=== PATIENT | female | born 1950 | race Caucasian/White ===

== ENCOUNTER 2022-07-15 10:26 | Emergency (ER) | payer MEDICARE, OTHER, SELFPAY ==
[2022-07-15 10:38] VITALS: BP 141/84; PULSE 99; RESP 18; TEMP 36.1; O2SAT 99; BMI 39.9
--- NOTE | 2022-07-15 11:05 | ED_ITS ---
HPI - General Adult General Time Seen by Provider: 11:06 Date Seen: 07/15/22 Chief complaint: Back Injury/Pain Stated complaint: severe lower back pain Time Seen by Provider: 07/15/22 10:27 Source: patient Mode of arrival: ambulatory Limitations: no limitations History of Present Illness HPI narrative: Patient is a 72-year-old female who presents with left low back pain, without radicular symptoms, without bowel or bladder symptoms. She had onset she had a little bit took some ibuprofen got better today woke up and was very stiff and sore, pain in her posterior superior iliac spine area on the left. Does not really radiate down her leg but she does have some pain in her leg. Patient denies recent illness denies history of back problems denies bowel or bladder symptoms as mention. She is generally healthy, she takes simvastatin. No fevers chills, night sweats, bowel or bladder symptoms as mentioned Related Data Home Medications Medication Instructions Recorded Confirmed simvastatin 20 mg tablet 20 mg PO HS 07/15/22 07/15/22 Previous Rx's Medication Instructions Recorded prednisone 20 mg tablet 20 mg PO BID 5 days #10 tabs 07/15/22 tramadol 50 mg tablet 75 mg PO Q6H PRN pain #14 tabs 07/15/22 Allergies Allergy/AdvReac Type Severity Reaction Status Date / Time nitrofurantoin Allergy Mild Nausea Verified 07/15/22 11:05 [From Macrobid] Review of Systems Status of ROS: Reports: 6 or more systems reviewed and unremarkable except as noted in History and below PFSH PFSH Social History Smoking Status: Never smoker How often do you have a drink containing alcohol: 2-4 times a month AUDIT-C Alcohol total score: 2 Non-prescribed substance use: denies use Exam Narrative: Exam Narrative: Objective: The patient has a level elevated BMI Vital signs are unremarkable She has some tenderness in her left low back at her belt line at the SI area and posterior superiorly superior iliac spine area negative straight-leg late raise on the left Normal sensation strength in lower extremities Const: Vital Signs, click to edit/add: Vital Signs - 24 hr 07/15/22 10:38 Temperature 96.9 F L Pulse Rate [Right Pulse Oximeter] 99 Respiratory Rate 18 Blood Pressure [Le ft Upper Arm] 141/84 H Pulse Oximetry 99 Oxygen Delivery Me thod Room Air Course Vital Signs Vital signs: Initial Vital Signs Temperature 96.9 F L 07/15/22 10:38 Temperature Source Temporal Artery Scan 07/15/22 10:38 Pulse Rate 99 07/15/22 10:38 Respiratory Rate 18 07/15/22 10:38 Blood Pressure 141/84 H 07/15/22 10:38 Blood Pressure Mean 103 07/15/22 10:38 Blood Pressure Position Standing 07/15/22 10:38 Pulse Oximetry 99 07/15/22 10:38 Oxygen Delivery Method 07/15/22 10:38 Vital Signs Temperature 96.9 F L 07/15/22 10:38 Pulse Rate 99 07/15/22 10:38 Respiratory Rate 18 07/15/22 10:38 Blood Pressure 141/84 H 07/15/22 10:38 Pulse Oximetry 99 07/15/22 10:38 Oxygen Delivery Method 07/15/22 10:38 Temperature 96.9 F L 07/15/22 10:38 Pulse Rate 99 07/15/22 10:38 Respiratory Rate 18 07/15/22 10:38 Blood Pressure 141/84 H 07/15/22 10:38 Pulse Oximetry 99 07/15/22 10:38 Oxygen Delivery Method 07/15/22 10:38 Medical Decision Making MDM Narrative Medical decision making narrative: Patient has onset of palpable left low back pain, worse with movement seems to be musculoskeletal, could be mildly radicular as well. Patient will get prednisone orally 60 mg now and also give her morphine 7.5 mg IM. She should continue prednisone 20 mg b.i.d. for the next 5 days, will send her with some U ltram as well, and may wish to take some ibuprofen in addition. Follow up with primary care in 2-3 days. Will see how she response to the injection. Addendum: The patient feels markedly better, will discharge her on Ultram as needed, prednisone, Advil as needed, light activity, ice to the back, follow up with primary care in the next 2-3 days certainly sooner change concerns worsening return to ED. Discharge Plan Discharge Clinical Impression: Low back pain Patient Disposition: Home w/ Parent or Adult Condition: Stable Additional Instructions: Ice to the low back 10 minutes 3 times a day Gentle range of motion, prednisone and ibuprofen and Ultram as needed, follow-up with primary care in the next 2to 3 days, return to ED sooner problems or concerns. Activity Level: Light activity Discharge Diet: Regular Prescriptions: New prednisone 20 mg tablet 20 mg PO BID 5 Days Qty: 10 0RF tramadol 50 mg tablet 75 mg PO Q6H PRN (Reason: pain) Qty: 14 0RF No Action simvastatin 20 mg tablet 20 mg PO HS Label Comments: TAKE 1 TABLET BY MOUTH AT BEDTIME Follow Up/Referrals: Ludivina Hameed MD [Primary Care Provider] - Stand Alone Forms: [employer] Info Instructions
[2022-07-15] MEDS: MORPHINE 10 MG/ML inj 7.5 MG IM (11:17)
[2022-07-15] MEDS: predniSONE 20 MG TABLET 60 MG PO (11:18)
== END 2022-07-15 11:49 | disposition home or self-care (01) ==
LOC: ED 11:31
PROVIDERS: Emergency Provider Family Medicine; PCP Family Medicine
DX: M54.50 Low back pain, unspecified (principal)
CPT/HCPCS: 96372; 99283; J2270; J7512

== ENCOUNTER 2023-01-08 15:00 | Outpatient (RCR) | payer MEDICARE, OTHER, SELFPAY ==
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
== END 2023-04-14 13:33 | disposition home or self-care (01) ==
PROVIDERS: PCP Family Medicine; Visit Provider Family Medicine
DX: M25.562 Pain in left knee (principal); Z51.89 Encounter for other specified aftercare
CPT/HCPCS: 97110; 97162; 97164

== ENCOUNTER 2023-10-29 09:45 | Outpatient (RCR) | payer MEDICARE, OTHER, SELFPAY | END 2024-01-27 14:45 | disposition home or self-care (01) | PROVIDERS: PCP Family Medicine; Visit Provider Physician Assistant | DX: M79.661 Pain in right lower leg (principal); Z74.09 Other reduced mobility; M62.9 Disorder of muscle, unspecified; R29.898 Other symptoms and signs involving the musculoskeletal system; Z51.89 Encounter for other specified aftercare | CPT/HCPCS: 97110; 97140; 97161 ==

== ENCOUNTER 2023-11-18 09:58 | Outpatient (CLI) | payer MEDICARE, OTHER, SELFPAY ==
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
--- NOTE | 2023-11-18 11:00 | MM_ITS ---
Final Report Patient: DAGOBERTO JENSEN Facility:?[facility] Patient ID:?[id number] :?1950 Study:?XRay Breast Left 2D w/ CAD POST CLIP PLACEMENT-11/18/2023 11:02:54 AM Ordering Physician:Alonzo Final Report: PLEASE SEE LEFT BREAST ULTRASOUND-GUIDED BIOPSY OF SAME DAY. CRL:celio NEIL/Dictated by: Matthias Burns MD @ 11/18/2023 12:17:00 PM (Electronic Signature)
== END 2023-11-18 09:59 | disposition home or self-care (01) ==
LOC: US 09:59
PROVIDERS: PCP Family Medicine; Visit Provider Family Medicine
DX: N63.20 Unspecified lump in the left breast, unspecified quadrant (principal); N60.02 Solitary cyst of left breast; R92.8 Other abnormal and inconclusive findings on diagnostic imaging of breast
CPT/HCPCS: 19083; 77065; 88305; A4648; A4649